=== PATIENT | male | born 1955 ===

== ENCOUNTER 2017-06-16 06:31 | Outpatient (CLI) | payer OTHER | END 2017-06-16 06:45 | disposition home or self-care (01) | LOC: LAB 06:31 | DX: E29.1 Testicular hypofunction (principal); N40.0 Benign prostatic hyperplasia without lower urinary tract symptoms ==

== ENCOUNTER 2017-08-29 06:56 | Emergency (ER) | payer OTHER ==
[~2017-08-29] VITALS: Ht 175.3 cm; Wt 79.4 kg
== END 2017-08-29 11:38 | disposition home or self-care (01) ==
LOC: ER 06:56
DX: N20.1 Calculus of ureter (principal); N20.0 Calculus of kidney

== ENCOUNTER 2019-10-17 01:08 | Emergency (ER) | payer OTHER ==
[~2019-10-17] VITALS: Ht 175.3 cm; Wt 86.2 kg
[2019-10-17] MEDS ORDERED: TAMS0.4C PO (06:41)
[2019-10-17] MEDS ORDERED: CIPRO500 MG PO (06:41)
[2019-10-17] MEDS ORDERED: KETO10TA2 PO (06:41)
== END 2019-10-17 06:53 | disposition home or self-care (01) ==
LOC: ER 01:08
DX: N20.2 Calculus of kidney with calculus of ureter (principal)

== ENCOUNTER 2020-04-10 05:05 | Emergency (ER) | payer OTHER ==
[~2020-04-10] VITALS: Ht 175.3 cm; Wt 86.2 kg
[~2020-04-10 05:05] MED LIST: CIPRO500 MG PO; KETO10TA2 PO; TAMS0.4C PO
[2020-04-10] MEDS ORDERED: NAPROXEN SODIU550 MG PO (08:09)
== END 2020-04-10 09:32 | disposition home or self-care (01) ==
LOC: ER 05:05
DX: S62.616A Displaced fracture of proximal phalanx of right little finger, initial encounter for closed fracture (principal); S62.614A Displaced fracture of proximal phalanx of right ring finger, initial encounter for closed fracture; W20.8XXA Other cause of strike by thrown, projected or falling object, initial encounter; Y93.I9 Activity, other involving external motion; Y92.413 State road as the place of occurrence of the external cause; Y99.8 Other external cause status

== ENCOUNTER 2020-10-29 11:57 | Emergency (ER) | payer OTHER ==
[~2020-10-29] VITALS: Ht 165.1 cm; Wt 81.6 kg
[~2020-10-29 11:57] MED LIST changes: +NAPROXEN SODIU550 MG PO
[2020-10-29] MEDS ORDERED: CARVEDILOL3.125 M1 PO (12:25)
[2020-10-29] MEDS ORDERED: AMOX1TAB5 PO (15:33)
[2020-10-29] MEDS ORDERED: INTESTINEX680 M1 PO (15:33)
== END 2020-10-29 16:04 | disposition home or self-care (01) ==
LOC: ER 11:57
DX: S01.02XA Laceration with foreign body of scalp, initial encounter (principal); W21.09XA Struck by other hit or thrown ball, initial encounter; Y93.73 Activity, racquet and hand sports; Y92.89 Other specified places as the place of occurrence of the external cause; Y99.8 Other external cause status

== ENCOUNTER 2020-11-06 05:56 | Emergency (ER) | payer OTHER ==
[~2020-11-06] VITALS: Ht 175.3 cm; Wt 83.9 kg
[~2020-11-06 05:56] MED LIST changes: +AMOX1TAB5 PO; +CARVEDILOL3.125 M1 PO; +INTESTINEX680 M1 PO
[2020-11-06] MEDS ORDERED: ZESTRIL5 MG (06:06)
== END 2020-11-06 07:18 | disposition home or self-care (01) ==
LOC: ER 05:56
DX: Z48.02 Encounter for removal of sutures (principal)

== ENCOUNTER 2021-07-03 18:55 | Emergency (ER) | payer OTHER ==
[~2021-07-03] VITALS: Ht 167.6 cm; Wt 80.7 kg
[~2021-07-03 18:55] MED LIST changes: +ZESTRIL5 MG
== END 2021-07-03 21:26 | disposition home or self-care (01) ==
LOC: ER 18:55
DX: S80.872A Other superficial bite, left lower leg, initial encounter (principal); W54.0XXA Bitten by dog, initial encounter; Y93.9 Activity, unspecified; Y92.9 Unspecified place or not applicable